=== PATIENT | female | born 2000 | race Caucasian/White ===

== ENCOUNTER 2022-02-28 07:10 | Emergency (ER) | payer BC, SELFPAY ==
--- NOTE | ~2022-02-28 | CT_ITS ---
EXAMINATION: CT abdomen pelvis w con DATE: 02/28/2022 12:45 INDICATION: Abdominal pain, vomiting TECHNIQUE: Computed tomography (CT) of the abdomen and pelvis was performed with 100 CC Omnipaque 350 intravenous contrast. Automated exposure control and iterative reconstruction technique were amy isabel. Exam dose: 279.68 mGy-cm total exam DLP. COMPARISON: None. FINDINGS: The lung bases are clear. Normal heart size. No pericardial or pleural effusion. The liver, spleen, pancreas, gallbladder, bile ducts and pancreatic duct appear normal. No gallbladde r wall thickening or pericholecystic fluid or fat stranding. Normal morphology of the adrenal glands. No renal mass lesion or urinary tract calculus or hydroureteronephrosis. The urinary bladder, uterus and adnexal areas are unremarkable. Normal caliber of the abdominal aorta. No intraperitoneal or retroperitoneal or pelvic mass lesion or adenopathy or ascites. No CT evidence of appendicitis is noted. No bowel obstruction or intraperitoneal free air. Small fat-containing umbilical hernia. Included skeletal structures are unremarkable. IMPRESSION: No significant abnormality Reviewed, dictated and finalized at [facility]. Reviewed, dictated and finalized at location [facility]. ER [facility] IMPRESSION: No significant abnormality
[2022-02-28 07:37] VITALS: BP 126/80; PULSE 90; RESP 18; TEMP 36.7; O2SAT 100
[2022-02-28 07:55] LABS: Basophils Absolute Auto 0.1 K/mm3 (0.0-0.1); Basophils Percent Auto 0.4 % (0.2-1.2); Eosinophils Absolute Auto 0.2 K/mm3 (0-0.3); Eosinophils Percent Auto 1.7 % (0-4.4); Hematocrit 41.5 % (37.0-47.0); Immature Granulocyte Absolute 0.05 K/mm3 (0.00-0.031); Immature Granulocyte Percent A 0.4 % (0-0.5); Lymphocytes Absolute Auto 1.47 K/mm3 (0.9-3.2); Lymphocytes Percent Auto 12.8 % (18.3-44.2); Mean Corpuscular HGB Conc 33.7 g/dl (32-36); Mean Corpuscular Volume 85.9 fl (80-100); Mean Platelet Volume 9.3 fl (7.4-10.4); Monocytes Absolute Auto 0.6 K/mm3 (0.1-0.6); Monocytes Percent Auto 5.6 % (2.6-8.5); Neutrophils Absolute Auto 9.1 K/mm3 (1.3-6.7); Neutrophils Percent Auto 79.1 % (45.5-73.1); Platelet Count Result 294 k/mm3 (150-375); Red Blood Count 4.83 M/mm3 (4.2-5.4); White Blood Count 11.5 K/mm3 (4.5-10.0)
[2022-02-28 08:17] LABS: Alanine Aminotransferase 18 U/L (6-35); Albumin Level 4.9 g/dL (3.5-5.1); Alkaline Phosphatase 66 U/L (38-126); Anion Gap 13 mmol/L (8-16); Aspartate Amino Transferase 26 U/L (14-36); Bilirubin,Total 0.7 mg/dL (0.2-1.3); Blood Urea Nitrogen 11 mg/dL (7-17); Calcium 9.6 mg/dL (8.4-10.2); Carbon Dioxide 21 mmol/L (22-30); Chloride 105 mmol/L (98-107); Estimated CRCL calculation 115 ml/min; Estimated Glomerular Filt Rate > 60; Glucose 138 mg/dL (65-110); Lipase 96 U/L (23-300); Sodium 139 mmol/L (137-145)
[2022-02-28 08:31] LABS: Influenza A QL RT-PCR Negative (Negative); Influenza B QL RT-PCR Negative (Negative); SARS-CoV-2 RNA PCR Negative
--- NOTE | 2022-02-28 11:07 | ED.ABDPAIN ---
HPI - Abdominal Pain General Chief Complaint: Abdominal Pain Stated Complaint: Abd pain, n/v Time Seen by Provider: 02/28/22 10:56 Source: patient Mode of arrival: ambulatory Limitations: no limitations History of Present Illness HPI narrative: This is a 21 year old female to male transgender person that presents to the ER for epigastric pain and vomiting ongoing since 3 this morning. Reports he has had crampy upper abdominal pain, nausea and vomiting. Reports this is common for him in the morning, but this episode lasted longer than usual. No GI diagnosis, he is not currently established with a GI doctor. Denies fever, diarrhea, dysuria or hematuria. Related Data Home Medications Medication Instructions Recorded Confirmed [id number] 300-1-0.5 cap PO 02/28/22 mg(AM)/elagolix 300 mg(PM) capsules testosterone 02/28/22 Allergies Allergy/AdvReac Type Severity Reaction Status Date / Time No Known Allergies Allergy Verified 02/28/22 07:40 Review of Systems Review of Systems: CONSTITUTIONAL: Denies fever GASTROINTESTINAL: Reports abdominal pain, nausea, vomiting. Denies diarrhea. GENITOURINARY: Denies dysuria or hematuria. All systems reviewed & are unremarkable except as noted in HPI and below PMFSH Past Medical History Medical History (Updated 02/28/22 @ 15:11 by Seble Coburn PA-C) History of hormone therapy Social History Social History (Updated 02/28/22 @ 11:08 by Seble Coburn PA-C) Smoking status: Never smoker Alcohol intake: current Substance use: current Substance use type: marijuana Exam Narrative: GENERAL: Well-appearing, well-nourished, and in no acute distress. HEAD: Normocephalic, atraumatic. EYES: EOMI. ENT: Mucous membranes moist. Oropharynx without tonsillar hypertrophy exudate or other lesions. CHEST: Clear to auscultation. No respiratory distress. No wheezes rales or rhonchi HEART: Regular rate and rhythm. No murmur heard. Normal peripheral pulses. ABDOMEN: Soft, nondistended, normal active bowel sounds. Mild tenderness to palpation epigastrium, without guarding EXTREMITIES: Normal range of motion. No edema. SKIN: Warm, dry, no rash. NEURO: No focal deficits. Alert and oriented x3. PSYCH: Normal mood and affect Course Vital Signs Vital signs: Vital Signs Temperature 98.0 F 02/28/22 07:37 Pulse Rate 90 02/28/22 07:37 Respiratory Rate 18 02/28/22 07:37 Blood Pressure 126/80 02/28/22 07:37 Pulse Oximetry 100 02/28/22 07:37 Oxygen Delivery Room Air 02/28/22 07:37 Temperature 98.7 F 02/28/22 11:17 Pulse Rate 62 02/28/22 14:10 Respiratory Rate 15 02/28/22 14:10 Blood Pressure 102/71 02/28/22 14:10 Pulse Oximetry 100 02/28/22 14:10 Oxygen Delivery Room Air 02/28/22 07:37 MDM - Abdominal Pain MDM Narrative Medical decision making narrative: Patient presents emergency department for epigastric pain, nausea and vomiting. Ongoing since early this morning. He is afebrile and nontoxic-appearing. Vitals are stable. CBC with mild leukocytosis to 11.5. Metabolic panel and lipase without concerning findings. Influenza and COVID screens are negative. UA with 79 white blood cells, likely contaminated catch. No urinary symptoms. This will be sent for culture. CT scan of the abdomen and pelvis without acute findings. Patient updated on case findings. Hydrated and given antiemetics with relief. Able to tolerate p.o. challenge. He is to follow-up with primary care doctor and gastroenterology. He was given warnings to return to the ER Lab Data Attestation: I reviewed the patient's lab results. Result diagrams: 02/28/22 07:49 02/28/22 07:49 Labs: Lab Results 02/28/22 02/28/22 02/28/22 Range/Units 07:49 07:49 07:49 WBC 11.5 H (4.5-10.0) K/mm3 RBC 4.83 (4.2-5.4) M/mm3 Hgb 14.0 (12.0-15.0) g/dL Hct 41.5 (37.0-47.0) % MCV 85.9 (80-100) fl MCH 29.0
[2022-02-28 11:13] LABS: Appearance Urine Clear (Clear); Bilirubin Urine 1+ (Negative); Blood Urine 1+ (Negative); Color Urine Yellow (Yellow); Glucose Urine UA Negative (Negative); Ketones Urine 4+ mg/dL (Negative); Leukocyte Esterase Ur Trace LEU/UL (Negative); Nitrate Urine Negative (Negative); Protein Urine 1+ mg/dL (Negative); Specific Grav Ur >= 1.030 (1.001-1.035); Urobilinogen Urine 0.2 mg/dL (<2.0)
[2022-02-28 11:16] LABS: Mucus Urine Moderate /lpf; RBC Urine 0-2 /hpf (0-2); Squamous Epithelial Cell Urine Few /hpf (Few)
[2022-02-28] MEDS: ONDANSETRON INJ 4 MG/2 ML VIAL IV PUSH (11:16)
[2022-02-28] MEDS: FAMOTIDINE 20 MG/2 ML VIAL IV PUSH (11:16)
[2022-02-28] MEDS: SODIUM CHLORIDE 0.9% IV 1,000 ML 999 ML IV CONT ×2 (11:16→13:43)
[2022-02-28 11:17] VITALS: PULSE 78; RESP 15; TEMP 37.1; O2SAT 100
[2022-02-28 11:33] LABS: Add Urine Microscopic? YES
[2022-02-28 12:08] LABS: Influenza A QL RT-PCR Negative (Negative); Influenza B QL RT-PCR Negative (Negative); SARS-CoV-2 RNA PCR Negative
[2022-02-28 12:10] VITALS: BP 113/63; PULSE 69; RESP 17; O2SAT 99
--- NOTE | 2022-02-28 12:37 | PC.NURSE ---
Pt to CT scan via w/c at this time.
[2022-02-28] MEDS: DICYCLOMINE HCL INJ 20 MG/2 ML VIAL IM (13:43)
[2022-02-28] MEDS: diphenhydrAMINE HCl INJ 50 MG/ML VIAL 25 MG IV PUSH (13:43)
[2022-02-28] MEDS: METOCLOPRAMIDE HCL INJ 10 MG/2 ML VIAL IV PUSH (13:43)
[2022-02-28 14:10] VITALS: BP 102/71; PULSE 62; RESP 15; O2SAT 100
== END 2022-02-28 15:30 | disposition home or self-care (01) ==
PROVIDERS: Family Medicine; Emergency Provider Physician Assistant
DX: R11.2 Nausea with vomiting, unspecified (principal); Z20.822 Contact with and (suspected) exposure to COVID-19
CPT/HCPCS: 36415; 74177; 80053; 81001; 81025; 83690; 85025; 87077; 87086; 87088; 87636; 96361; 96365; 96372; 96375; 99284; J0131; J0500; J1200; J2405; J2765; J7030; Q9967

== ENCOUNTER 2022-03-11 11:15 | Outpatient (CLI) | payer BC, SELFPAY ==
[2022-03-11 11:48] LABS: Hematocrit 45.5 % (37.0-47.0); Hemoglobin 15.4 g/dL (12.0-15.0); Mean Corpuscular HGB Conc 33.8 g/dl (32-36); Mean Corpuscular Hemoglobin 28.8 pg (26-34); Mean Corpuscular Volume 85.2 fl (80-100); Mean Platelet Volume 9.3 fl (7.4-10.4); Platelet Count Result 332 k/mm3 (150-375); Red Blood Count 5.34 M/mm3 (4.2-5.4); Red Cell Distribution Width 13.2 % (11.5-14.5); White Blood Count 10.6 K/mm3 (4.5-10.0)
[2022-03-11 11:49] LABS: Alanine Aminotransferase 45 U/L (6-35); Albumin Level 5.2 g/dL (3.5-5.1); Alkaline Phosphatase 52 U/L (38-126); Anion Gap 12 mmol/L (8-16); Aspartate Amino Transferase 39 U/L (14-36); Bilirubin,Total 0.8 mg/dL (0.2-1.3); Blood Urea Nitrogen 8 mg/dL (7-17); CRP < 0.5 mg/dL (<1.0); Calcium 9.5 mg/dL (8.4-10.2); Carbon Dioxide 25 mmol/L (22-30); Chloride 95 mmol/L (98-107); Estimated Glomerular Filt Rate > 60; Glucose 97 mg/dL (65-110); Potassium 3.6 mmol/L (3.4-5.0); Sodium 132 mmol/L (137-145)
[2022-03-11 12:03] LABS: Appearance Urine Clear (Clear); Bilirubin Urine 2+ (Negative); Blood Urine 2+ (Negative); Color Urine Yellow (Yellow); Glucose Urine UA Negative (Negative); Ketones Urine 4+ mg/dL (Negative); Leukocyte Esterase Ur Negative LEU/UL (Negative); Mucus Urine Moderate /lpf; Nitrate Urine Negative (Negative); Protein Urine 3+ mg/dL (Negative); RBC Urine 21-50 /hpf (0-2); Specific Grav Ur >= 1.030 (1.001-1.035); Squamous Epithelial Cell Urine Few /hpf (Few)
[2022-03-11 12:06] LABS: Add Urine Microscopic? YES
[2022-03-11 12:22] LABS: Erythrocyte Sedimentation Rate 1 mm/hr (0-20)
[2022-03-11 14:26] LABS: Hepatitis B Surface Antigen Negative (Negative)
[2022-03-11 14:31] LABS: Hepatitis C Virus Antibody Negative (Negative)
[2022-03-11 16:59] LABS: HAV RESULT Negative (Negative); Hepatitis B Core IgM Result Negative (Negative)
[2022-03-15 11:28] LABS: Tissue Transglutaminase IgA Ab <1.0 U/mL (<15.0)
[2022-03-15 19:12] LABS: Tissue Transglutaminase IgG Ab <1.0 U/mL (<15.0)
== END 2022-03-11 11:16 | disposition home or self-care (01) ==
PROVIDERS: PCP Family Medicine; Visit Provider Nurse Practitioner
DX: R10.2 Pelvic and perineal pain (principal); R11.2 Nausea with vomiting, unspecified; R63.4 Abnormal weight loss; R93.3 Abnormal findings on diagnostic imaging of other parts of digestive tract
CPT/HCPCS: 36415; 80053; 80074; 81001; 83516; 85027; 85652; 86140; 87077; 87086; 87088